=== PATIENT | female | born 2005 | race Two or more races ===

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

== ENCOUNTER → 2024-02-20 | Emergency (ER) | payer OTHER ==
[~2024-02-20] VITALS: Ht 154.9 cm; Wt 61.4 kg
[~2024-02-20] MED LIST: IBUP-45 PO; METH-812 PO
[2024-02-20 20:11] VITALS: TEMP 98.4
[2024-02-20 21:08] VITALS: BP 119/70; PULSE 72; RESP 20; O2SAT 99
[2024-02-20 21:39] LABS: BASOPHILS % (AUTO) 0.8 % (0.0-2.0); EOSINOPHILS % (AUTO) 1.1 % (1.0-6.0); HEMATOCRIT 40.7 % (36-46); HEMOGLOBIN 13.5 g/dL (12.0-16.0); LYMPHOCYTES # (AUTO) 2.3 K/uL (1.0-4.8); LYMPHOCYTES % (AUTO) 28.7 % (22.0-44.0); MEAN CORPUSCULAR HEMOGLOBIN 29.1 pg (26.0-34.0); MEAN CORPUSCULAR HGB CONC 33.1 G/dL (31.0-37.0); MEAN CORPUSCULAR VOLUME 88 fL (80-100); MONOCYTES # (AUTO) 0.6 K/uL (0.1-1.0); MONOCYTES % (AUTO) 7.2 % (2.0-9.0); NEUTROPHILS % (AUTO) 62.2 % (40.0-70.0); PLATELET COUNT (AUTO) 301 K/uL (150-450); RED BLOOD CELL COUNT(AUTO) 4.63 MIL/uL (4.00-5.20); RED CELL DISTRIBUTION WIDTH 14.2 % (11.5-14.5); WHITE BLOOD COUNT (AUTO) 8.1 K/uL (4.5-11.0)
[2024-02-20] MEDS: ONDANSETRON HCL 4 MG/2 ML VIAL IVP ONE (21:39)
[2024-02-20] MEDS: KETOROLAC TROMETHAMINE 30 MG/ML VIAL IVP ONE (21:39)
[2024-02-20] MEDS: SODIUM CHLORIDE 0.9% 2,000 ML IV ONE (21:40)
[2024-02-20] MEDS: ACETAMINOPHEN/CODEINE 300-30 MG TABLET PO ONE (21:40)
[2024-02-20 21:47] LABS: ANION GAP 8 mmol/L (8-16); CALCIUM, TOTAL 8.9 mg/dL (8.8-10.5); CARBON DIOXIDE 28 mmol/L (22-29); CHLORIDE 103 mmol/L (98-107); CREATININE 0.56 mg/dL (0.60-1.30); GLOMERULAR FILTR. RATE CALC > 60 mL/min (>60); GLUCOSE,RANDOM 86 mg/dL (70-110); SODIUM SERUM 138 mmol/L (136-145); UREA NITROGEN, BLOOD 12 mg/dL (7-18)
== END | disposition still patient (30) ==
LOC: EMS 20:06
DX: S09.90XA Unspecified injury of head, initial encounter (principal); W19.XXXA Unspecified fall, initial encounter; Y93.89 Activity, other specified; Y92.89 Other specified places as the place of occurrence of the external cause; Y99.0 Civilian activity done for income or pay
CPT/HCPCS: 99284; 96374; 96361; 96375; 80048; 84703; 85025; 36415; J1885; J2405; J7030